=== PATIENT | female | born 1990 | race African-American/Black ===

== ENCOUNTER 2025-05-14 16:11 | Emergency (ER) | payer OTHER, SELFPAY ==
[2025-05-14 16:20] VITALS: BP 122/81; PULSE 81; RESP 18; TEMP 36.4; O2SAT 100
--- OUTSIDE RECORDS SUMMARY | 2025-05-14 16:23 | XMS_ITS | Clinical Summary ---
Author Organization [facility] Address [address] [place] [address] Phone Care Team Providers Care Materials Coordinator Name Role Phone Sheree Yadav APRN, ELECTRICAL ELECTRONICS ENGINEERS Primary Care P rovider Jonny De Guzman MD Unavailable Sydnee Gamble APRN, ELECTRICAL ELECTRONICS ENGINEERS Unavailable Allergies No known active allergies Medications spironolactone (ALDACTONE) 25 MG TabletIndicatio ns:Acne vulgaris Take 1 Tablet by mouth daily. 90 Tablet 3 4 Active Clindamycin Phos-Benzoyl Perox 1-5 % GelIndications: Acne vulgaris Use BID to areas of acne on face 50 g 3 4 Active tirzepatide-samm ght management (Zepbound) 2.5 MG/0.5ML Solution Auto-injectorIn dications:TERRENCE (obstructive sleep apnea),Class 3 severe obesity due to excess calories without serious comorbidity with body mass index (BMI) of 40.0 to 44.9 in adult 2.5 mg by Subcutaneous route once a week. 0.5 mL 5 5 Active Additional Information Patient not taking.Reported on 03/06/2025 Phentermine HCl 37.5 MG TabletIndicatio ns:Class 3 severe obesity due to excess calories without serious comorbidity with body mass index (BMI) of 40.0 to 44.9 in adult Take 1 Tablet by mouth every morning (before breakfast). 30 Tablet 5 Active Additional Information Patient not taking.Reported on 03/06/2025 triamcinolone (KENALOG) 0.1 % Cream Apply a pea size amount to affected area 2 times per day for 14 days. 15 g Active hydrocortisone 2.5 % Cream Apply pea size amount to affected area 2 times per day for 14 days. 30 g Active Active Problems Problem Noted Date Diagnosed Date Eczema 01/31/2025 Snoring 01/27/2025 TERRENCE (obstructive sleep apnea) 01/02/2024 Class 3 severe obesity due t o excess calories without serious comorbidity with body mass index (BMI) of 40.0 to 44.9 in adult 01/02/2024 Encounters Date Type Department Care Team Description 04/22/2025 Telephone [facility] [address] [place] [address] Sophie Nava APRN, CNP provider out of office (Need to reschedule 06/06/2025 appointment ) 03/06/2025 8:00 AM CDT Office Visit [facility] [address] [place] [address] Sophie Nava APRN, CNP Class 3 severe obesity due to excess calories without serious comorbidity with body mass index (BMI) of 40.0 to 44.9 in adult (Primary Dx); Encounter for weight management Discharge Disposition: Discharged to home or Selfcare 03/06/2025 Travel from Last 3 Months Immunizations Immunization Administration Dates Next Due TDAP Vaccine 06/02/2014 Family History Medical History Relation Name Comments Cancer Maternal Grandmother Bipolar Disorder Mother Schizophrenia Mother Relation Name Status Comments Maternal Grandmother Alive Mother Alive Social History Tobacco Use Types Packs/Day Years Used Date Smoking Tobacco: Never Smokeless Tobacco: Never Tobacco Cessation:Counseling Given: Not Answered Alcohol Use Standard Drinks/Week Comments Yes 0 (1 standard drink = 0.6 oz pur e alcohol) [facility] Utilities Answer Date Recorded In the past 12 months has [employer], [employer], oil, or water [employer] threatened to shut off services in your home? Patient declined 01/31/2025 Social Connection and Isolation Panel Answer Date Recorded In a typical week, how many times do you talk on the phone with family, friends, or neighbors? Patient declined 01/31/2025 How often do you get togethe r with friends or relatives? Patient declined 01/31/2025 How often do you attend cheondoism or mormon serv ices? Patient declined 01/31/2025 Do you belong to any clubs o r organizations such as cheondoism groups, unions, fraternal or athletic groups, or school groups? Patient declined 01/31/2025 How often do you attend meet ings of the clubs or organizations you belong to? Patient declined 01/31/2025 Are you , , di vorced, , never , or living with a partner? Patient declined 01/31/2025 AUDIT-C Answer Date Recorded Q1: How often do you have a drink containing alc ohol? Patient declined 01/31/2025 Q2: How many drinks containi ng alcohol do you have on a typical day when you are drinking? Patient declined 01/31/2025 Q3: How often do you have si x or more drinks on one occasion? Patient declined 01/31/2025 Overall Financial Resource Strain (CARDIA) Answe r Date Recorded How hard is it for you to pa y for the very basics like food, housing, medical care, and heating? Patient declined 01/31/2025 PHQ-2 Answer Date Recorded Total Score - Questions 1-9 0 01/08 [facility] - Occupational Stress Questionnaire Answer Date Recorded Do you feel stress - tense, restless, nervous, or anxious, or unable to sleep at night because your mind is troubled all the time - these days? Patient declined 01/31/2025 Exercise Vital Sign Answer Date Recorde d On average, how many days pe r week do you engage in moderate to strenuous exercise (like a brisk walk)? Patient declined On average, how many minutes do you engage in exercise at this level? Patient declined 01/31/2025 Hunger Vital Sign Answer Date Recorded Within the past 12 months, y ou worried that your food would run out before you got the money to buy more. Patient declined Within the past 12 months, t he food you bought just didn't last and you didn't have money to get more. Patient declined PRAPARE - Transportation Answer Date Re corded In the past 12 months, has l ack of transportation kept you from medical appointments or from getting medications? Patient declined 01/31/2025 In the past 12 months, has l ack of transportation kept you from meetings, work, or from getting things needed for daily living? Patient declined 01/31/2025 Housing Stability Vital Sign Answer Ger e Recorded In the last 12 months, was t here a time when you were not able to pay the mortgage or rent on time? Patient declined 02/01/20 Number of Times Moved in the Last Year Not on fi le 01/31/2025 At any time in the past [address] [facility], were you homeless or living in a detention (including now)? 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 Gender Identity Not on file Sexual Orientation Not on file Last Filed Vital Signs Vital Sign Reading Time Taken Comments Blood Pressure 118/80 03/06/2025 8:10 AM CDT Pulse 70 03/06/2025 8:10 AM CDT Temperature 36.5 C (97.7 F) 03/06/2025 8:10 AM CDT Respiratory Rate 20 03/06/2025 8:10 AM CDT Oxygen Saturation 98% 03/06/2025 8:10 AM CDT Inhaled Oxygen Concentration - - Weight 96.8 kg (213 lb 8 oz) 03/06/2025 8:10 AM CDT Height 154.9 cm (5' 1) 03/06/2025 8:10 AM CDT Body Mass Index 40.34 03/06/2025 8:10 AM CDT Plan of Treatment Health Maintenance Due Date Last Done Comments Pap Smear 2010 Human Papillomavirus (HPV) Immunization (1 - 3-dose SCDM series) 2016 Td Immunization Every 10 Yea rs (Adults With 1 Tdap) 06/02/2024 06/02/2014 SARS-COV-2 Immunization ( season) 2024 Influenza Immunization (#1) 2025 Cervical Cancer Screening (CCS) 12/13/2026 HPV/Cotest 12/13/2026 12/13/2021 Respiratory Syncytial Virus (RSV) Immunization (Adult) (1 - 1-dose 75+ series) 2064 DTaP/Tdap/Td Immunization Discontinued 06/02/2014 Hepatitis C Virus (HCV) Screening Completed 024 Hepatitis B Immunization Discontinued Meningococcal Immunization (ACWY) Aged Out No longer eligible based on patient's age to complete this topic Pneumococcal Immunization Combined Aged Out No longer eligible based on patient's age to complete this topic Rotavirus Immunization Aged Out No lo nger eligible based on patient's age to complete this topic Procedures Procedure Name Priority Date/Time Associated Diagnosis Comments HEPATITIS C ANTIBODY Routine 12/27/2023 8:36 AM CDT Preventative health care (Adult) from Last 3 Months or Most Recently Relevant to Health Maintenance Results * HEPATITIS C ANTIBODY (12/27/2023 8:36 AM CDT) hepatitis C antibody 0.14 <1 S/CO 12/27/2023 6:32 PM CDT [facility] Comment: Signal/Cutoff ratio < 0.79 is Nondetected Signal/Cutoff ratio 0.80-0.99 is Grayzone Signal/Cutoff ratio > 0.99 is Detected Supplemental assays are recommended if signal/cutoff ratio is >/=1.00. Signal/cutoff ratio result >/= 5.00 is 97% predictive of positivity for recombinant immunoblot assay (RIBA) and will be reported to the [place] Department of Public Health as required. Blood Venipuncture / Unknown 12/27/2023 8:36 AM CDT 12/27/2023 10:00 AM CDT us Sheree Yadav APRN, CNP CHEMISTRY ORDER SUELLEN Final Result [facility] [address] [place] [address], [place] from Last 3 Months or Most Recently Relevant to Health Maintenance Insurance [employer] Care Teams Materials Coordinator Relationship Specialty Start Date End Date Sheree Yadav APRN, ELECTRICAL ELECTRONICS ENGINEERS [address] [place] [address] PCP - General Advanced Practice Nurse 12/18/23 Jonny De Guzman MD [address] [place] [address] Consulting Physician Pulmonary Disease 01/03/24 Sydnee Gamble APRN, ELECTRICAL ELECTRONICS ENGINEERS [address] [address] Nurse Practitioner Advanced Practice Nurse 01/27/25
--- OUTSIDE RECORDS SUMMARY | 2025-05-14 16:23 | XMS_ITS | Clinical Summary ---
Author Organization [facility] Address [address] [place] [address] Care Team Providers Care Commercial Driver'S License Driver Name Role Phone ElodiaSkyegy Chavez Primary Care Provider Jelani Garcia MD Unavailable [phone] Tyler Rossi MD Unavailable [phone] Lucero Baptiste MD Unavailable [phone] Tenisha Miller MD Unavailable [phone] Source Comments [facility],non-owned Affiliates and Associated Physician Practices is amultiple site organization consisting of ambulatory clinics and hospital sitesin [place], [place], [place] and [place]. This disclosure is being madepursuant to the Care Everywhere program and may not contain all information available regarding this patient. Last updated 18.[facility] Allergies No known active allergies Medications * Be aware that medications may not be up to date on this document. Alwaysverify current medications with the patient. Probiotic Product (PROBIOTIC ADVANCED PO) Take 1 tablet by mouth once daily Active LORazepam (ATIVAN) 0.5 MG tablet Take 0.5 mg by mouth every 8 hours as needed for Anxiety Active naproxen (NAPROSYN) 500 MG tablet Take 1 (one) tablet by mouth 2 times daily as needed for Pain 30 tablet 03/13/2022 Active Active Problems Problem Noted Date Diagnosed Date Diastasis recti Migraine Family History Medical History Relation Name Comments Negative Family History Father Negative Family History Mother Relation Name Status Comments Father Alive Mother Alive Social History Tobacco Use Types Packs/Day Years Used Date Smoking Tobacco: Never Smokeless Tobacco: Never Alcohol Use Standard Drinks/Week Comments Yes 0 (1 standard drink = 0.6 oz pur e alcohol) 1 per week Comments No Sex and Gender Information Value Date Recorded Sex Assigned at Not on file Legal Sex Female 5:13 AM ORCHESTRA MUSICIAN Gender Identity Not on file Sexual Orientation Not on file 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 Not on file Not on file Last Filed Vital Signs Vital Sign Reading Time Taken Comments Blood Pressure 125/76 03/13/2022 11:18 AM CDT Pulse 60 03/13/2022 11:18 AM CDT Temperature 36.9 C (98.5 F) 03/13/2022 11:18 AM CDT Respiratory Rate 18 03/13/2022 11:18 AM CDT Oxygen Saturation 98% 03/13/2022 11:18 AM CDT Inhaled Oxygen Concentration - - Weight 88 kg (194 lb) 03/13/2022 11:18 AM CDT Height 152.4 cm (5') 03/13/2022 11:18 AM CDT Body Mass Index 37.89 03/13/2022 11:18 AM CDT Plan of Treatment Health Maintenance Due Date Last Done Comments HIV SCREENING 2004 HEPATITIS C SCREENING 07/15/2007 DTAP/TDAP/TD VACCINES (1 - Tdap) 2008 HEPATITIS B VACCINE (1 of 3 - 19+ 3-dose series) 2008 HPV VACCINE (1 - 3-dose SCDM series) 2016 COVID-19 VACCINE (3 - season) 2024 06/12/2021, 05/15/2021 DEPRESSION SCREENING 10/09/2024 PAP SMEAR 12/13/2024 12/13/2021, 1211/2015, 09/09/2016, Additional history exists INFLUENZA VACCINE (#1) 2025 ZOSTER VACCINE (1 of 2) 2039 HIB VACCINE Aged Out No longer eligi ble based on patient's age to complete this topic MENINGOCOCCAL (Group B) VACCINE SHARED DECISION-MAKING Aged Out No longer eligible based on patient's age to complete this topic MENINGOCOCCAL GROUPS A/C/Y/W VACCINE Aged Out No longer eligible based on patient's age to complete this topic PNEUMOCOCCAL VACCINE Aged Out No long er eligible based on patient's age to complete this topic Procedures Procedure Name Priority Date/Time Associated Diagnosis Comments PAP IG LB CT+NG+TV RFLX HPV ASCU Routine 12/13/2021 11:13 AM ORCHESTRA MUSICIAN Well woman exam with routine gynecological exam from Last 3 Months or Most Recently Relevant to Health Maintenance Results * PAP IG LB CT+NG+TV RFLX HPV ASCU (12/13/2021 11:13 AM ORCHESTRA MUSICIAN) Diagnosis [facility] ACCOUNT BILL Comment: NEGATIVE FOR INTRAEPITHELIAL LESION OR MALIGNANCY. PREDOMINANCE OF COCCOBACILLI CONSISTENT WITH SHIFT IN VAGINAL EARL IS PRESENT. Specimen Adequacy [facility] ACCOUNT BILL Comment:Satisfactory for abena luation. No endocervical component is identified. Clinician Provided ICD10 [facility] ACCOUNT BILL Comment: Z01.419 N76.0 B96.89 Performed by [facility] ACCOUNT BILL Comment:Shantal taylor, Lead Cargo Mover (ASCP) Comment . [facility] ACCOUNT BILL Note [facility] ACCOUNT BILL Comment: The Pap smear is a screening test designed to aid in the detection of premalignant and malignant conditions of the uterine cervix. It is not a diagnostic procedure and should not be used as the sole means of detecting cervical cancer. Both false-positive and false-negative reports do occur. . IGLBP CPT Code Automation [facility] ACCOUNT BILL Comment: This liquid based ThinPrep(R) pap test was screened with the use of an image guided system. Note [facility] ACCOUNT BILL Comment: The HPV DNA reflex criteria were not met with this specimen result therefore, no HPV testing was performed. . Chlamydia trachomatis JINA Negative Negative [facility] ACCOUNT BILL GC JINA Negative Negative [facility] ACCOUNT BILL Trichomonas vaginalis by JINA Negative Negative [facility] ACCOUNT BILL PART OF UTERINE CERVIX / Unknown 12/13/2021 11:13 AM ORCHESTRA MUSICIAN 12/14/2021 Narrative [facility] ACCOUNT BILL - 12/17/2021 11:10 AM ORCHESTRA MUSICIAN No. of containers..01 ThinPrep Vial Resulting Agency Comment Lab Testing performed at: [facility] [address] [id number] Jelani Garcia MD LAB - PATHOLOGY/CYTOLOGY ORDERA BLES Final Result [facility] [place] [place] [address] from Last 3 Months or Most Recently Relevant to Health Maintenance Care Teams Commercial Driver'S License Driver Relationship Specialty Start Date End Date Jessica Clifton DO [address] [place] [id number] PCP - General Family Medicine 04/26/16 Jelani Garcia MD [address] [facility] [address] [place] [phone] Counseling Case Manager Obstetrics and Gynecology 08/20/16 Tyler Rossi MD [address] [facility] [facility] [address] [place] [address] General Surgery 02/14/17 [place] [address] [facility] [address] [place] [phone] Rheumatology 03/14/18 Tenisha Miller MD [address] [place] [address] [address] [place], [place] [id number] Internal Medicine 03/14/18
--- OUTSIDE RECORDS SUMMARY | 2025-05-14 16:23 | XMS_ITS | Encounter Summary ---
Author Organization [facility] Address [address] [place] [address] Phone Care Team Providers Care Sizer Machine Name Role Phone Sheree Yadav APRN, CNP Primary Care P rovider Jonny De Guzman MD Unavailable Sydnee Gamble APRN, CNP Unavailable Encounter Details Date Type Department Care Team (Late st Contact Info) Description 06/28/2024 Telephone [facility] [address] [place] [address] Sheree Yadav APRN, CNP [address] [place] [address] Social History Tobacco Use Types Packs/Day Years Used Date Smoking Tobacco: Never Smokeless Tobacco: Never Alcohol Use Standard Drinks/Week Comments Yes 0 (1 standard drink = 0.6 oz pur e alcohol) occ Comments No Sex and Gender Information Value Date Recorded Sex Assigned at Not on file 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 Gender Identity Not on file Sexual Orientation Not on file documented as of this encounter Plan of Treatment Not on file documented as of this encounter Visit Diagnoses Not on filedocumented in this encounter Care Teams Sizer Machine Relationship Specialty Start Date End Date Sheree Yadav APRN, CNP [address] [place] [address] PCP - General Advanced Practice Nurse 12/18/23 Jonny De Guzman MD [address] [place] [address] Consulting Physician Pulmonary Disease 01/03/24 Sydnee Gamble APRN, BLACK TOPPER [address] [address] Nurse Practitioner Advanced Practice Nurse 01/27/25 documented as of this encounter
--- OUTSIDE RECORDS SUMMARY | 2025-05-14 16:23 | XMS_ITS | Clinical Summary ---
Author Organization [facility] Address [address] [place] [address] Care Team Providers Care Concert Promoter Name Role Phone Tenisha Miller MD Primary Care Provider Allergies No known active allergies Medications buPROPion (WELLBUTRIN) 100 mg tablet take 1 tablet by oral route 2 times every day 0 0 6 Active cyclobenzaprine (FLEXERIL) 10 mg tabletIndicatio ns:Muscle Spasm Take 1 tablet (10 mg total) by mouth 3 (three) times a day as needed for muscle spasms 12 tablet 1 Active metoclopramide (REGLAN) 10 mg tablet Take 1 tablet (10 mg total) by mouth every 6 (six) hours 30 tablet 5 Active ondansetron (ZOFRAN) 4 mg tablet Take 1 tablet (4 mg total) by mouth every 6 (six) hours 12 tablet 5 Active acetaminophen (TYLENOL) 500 mg tablet Take 1 tablet (500 mg total) by mouth every 6 (six) hours as needed for pain, headaches or fever 30 tablet 5 Active ibuprofen (ADVIL,MOTRIN) 600 mg tabletIndicatio ns:Pain Take 1 tablet (600 mg total) by mouth every 6 (six) hours as needed for pain 30 tablet 5 Active Immunizations Immunization Administration Dates Next Due Tdap 06/02/2014 Surgical History Surgery Date Site/Laterality Comments OTHER SURGICAL HISTORY : Induced OTHER SURGICAL HISTORY : Medical History Medical History Date Comments Hx Other Medical ; Outc ome: Unknown Hx Other Medical ; Outc ome: [id number] week 7lb(s) 7 oz Male Family History Medical History Relation Name Comments Hypertension Brother Diabetes Maternal Grandmother Diabetes Mother Cancer Other 1 Family history of Cancer; Diabetes Other 2 Family history of Diabetes mellitus; Relation Name Status Comments Brother Maternal Grandmother Mother Other 1 Other 2 Social History Tobacco Use Types Packs/Day Years Used Date Smoking Tobacco: Never Alcohol Use Standard Drinks/Week Comments Yes 0 (1 standard drink = 0.6 oz pur e alcohol) Personal Safety Answer Date Recorded Have you ever been in or are you currently in a harmful physical or emotional relationship or is someone making you feel afraid or unsafe? Denies 11/19/2024 Comments No Sex and Gender Information Value Date Recorded Sex Assigned at Not on file Legal Sex Female 6:38 PM REGISTERED NURSE STEP DOWN Gender Identity Not on file Sexual Orientation Not on file Obstetrics History Last Filed Vital Signs Vital Sign Reading Time Taken Comments Blood Pressure 111/75 11/19/2024 11:19 PM REGISTERED NURSE STEP DOWN Pulse 101 11/19/2024 11:19 PM REGISTERED NURSE STEP DOWN Temperature 36.6 C (97.8 F) 11/19/2024 11:19 PM REGISTERED NURSE STEP DOWN Respiratory Rate 18 11/19/2024 11:19 PM REGISTERED NURSE STEP DOWN Oxygen Saturation 99% 11/19/2024 11:19 PM REGISTERED NURSE STEP DOWN Inhaled Oxygen Concentration - - Weight 96.6 kg (213 lb) 11/19/2024 5:57 PM REGISTERED NURSE STEP DOWN Height 154.9 cm (5' 1) 11/19/2024 5:57 PM REGISTERED NURSE STEP DOWN Body Mass Index 40.25 11/19/2024 5:57 PM REGISTERED NURSE STEP DOWN Plan of Treatment Health Maintenance Due Date Last Done Comments Cervical Cancer Screening 1989 Depression Screening 1989 Hepatitis C Screening 1989 Varicella Vaccines (1 of 2 - 13+ 2-dose series) 2002 Hepatitis B Screening 2007 Regular Well Visit/Exam 18-64 2007 HPV Vaccines (1 - 3-dose SCD M series) 2016 DTaP/Tdap/Td Vaccine (2 - Td or Tdap) 06/02/2024 06/02/2014 Covid-19 Vaccine (3 - 2023-2 5 season) 2024 06/12/2021, 05/15/2021 Influenza Vaccine (#1) 2025 Pneumococcal vaccine <65 Aged Out 09/17/2004 No longer eligible based on patient's age to complete this topic Insurance [facility] CHOICE PLUS [facility] HMO [facility] HMO/PPO Address: [address] [place] [address] [employer] [facility] PPO Care Teams Concert Promoter Relationship Specialty Start Date End Date Tenisha Miller MD [address] [address] PCP - General 10/17/18
--- NOTE | 2025-05-14 16:44 | ED_ITS ---
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 Believe she has a vaginal yeast i nfection as she has had them frequently in the past. She has been sweaty recently in the gym. Related Data Home Medications ?Medication ?Instructions ?Recorded ?Confirmed ?Last Taken ?Type Probiotic PO DAILY 05/14/25 Unknown History Allergies Allergy/AdvReac Type Severity Reaction Status Date / Time Penicillins Allergy Intermediate Hives Verified 05/14/25 16:29 PMFSH Comments At time of signature, I have reviewed and agree with nursing past medical, surgical, social and family history unless otherwise noted. Please see nursing chart for further information. There is no relevant family history pertinent to the presenting complaint Exam Narrative: GENERAL: Well-appearing, well-nourished, and in no acute distress. HEAD: Normocephalic, atraumatic. EYES: EOMI. No redness or drainage. Conjunctivae normal. ENT: Mucous membranes pink and moist. NECK: Normal AROM. CHEST: No respiratory distress. : deferred exam EXTREMITIES: Normal range of motion. No edema. SKIN: Warm, dry, no rash. Capillary refill normal. Normal skin turgor. NEURO: No focal deficits. Alert and oriented x3. Gait steady. PSYCH: Normal affect. No signs of depression or anxiety. Course Course Level of Care: Express Care Visit Vital Signs Vital signs: Vital Signs Temperature 97.6 F 05/14/25 16:20 Pulse Rate 81 05/14/25 16:20 Respiratory Rate 18 05/14/25 16:20 Blood Pressure 122/81 05/14/25 16:20 Pulse Oximetry 100 05/14/25 16:20 Oxygen Delivery Room Air 05/14/25 16:20 Temperature 97.6 F 05/14/25 16:20 Pulse Rate 81 05/14/25 16:20 Respiratory Rate 18 05/14/25 16:20 Blood Pressure 122/81 05/14/25 16:20 Pulse Oximetry 100 05/14/25 16:20 Oxygen Delivery Room Air 05/14/25 16:20 Reviewed MDM - Female Genitourinary MDM Narrative Medical decision making narrative: 34-year-old female patient presents today with vulvar itching, irritation, and thick white vaginal discharge since yesterday. Believe she has a vaginal yeast infection as she has had them frequently in the past. Defers exam today. States she has had of fluconazole in the past and her OBGYN has given her higher dose due to her history. Will prescribe fluconazole 200 mg and recommend following up with OBGYN if symptoms persist. Patient agrees with plan. Differential Diagnosis Differential diagnosis: Likely bacterial vaginosis and vaginitis Critical Care Time Critical Care Time Critical Care Time: No Discharge Plan Discharge Clinical Impression: Vaginal yeast infection Patient Disposition: Home Condition: Stable Instructions: Yeast Infection (ED) Additional Instructions: Please take the fluconazole as prescribed. Change damp clothes frequently. Do not sit in wet bathing suits. Wear cotton underwear. Follow-up with your OBGYN in 1 week if symptoms persist. Your blood pressure was elevated above 120/80 today at Urgent Care. This puts you above the threshold for follow up. Please schedule a followup visit with your personal physician as soon as possible, for further evaluation and treatment. Even blood pressure exceeding 120/80 may indicate pre-hypertension. Patient Language: Luxembourgish Prescriptions: New fluconazole 200 mg tablet 200 mg PO .every 3 days Qty: 2 0RF No Action Probiotic PO DAILY Follow-up/Referrals: PHYSICIAN NOT ON STAFF,NONSTAFF [Primary Care Provider] - Time of Disposition: 16:50
== END 2025-05-14 16:50 | disposition home or self-care (01) ==
PROVIDERS: Emergency Provider Nurse Practitioner
DX: B37.31 Acute candidiasis of vulva and vagina (principal)
CPT/HCPCS: 99203; G0463

== ENCOUNTER 2025-08-15 10:19 | Emergency (ER) | payer OTHER, SELFPAY ==
[2025-08-15 10:23] VITALS: BP 126/76; PULSE 80; RESP 22; TEMP 36.4; O2SAT 98
--- OUTSIDE RECORDS SUMMARY | 2025-08-15 11:00 | XMS_ITS | Encounter Summary ---
Author Organization [facility] Address [address] [place] [address] Phone Care Team Providers Care Sustain Engineer Name Role Phone Sheree Yadav APRN, ADOBE BALL MIXER Primary Care P meseretder Jonny De Guzman MD Unavailable Sydnee Gamble APRN, ADOBE BALL MIXER Unavailable Encounter Details Date Type Department Care Team (Late Contact Info) Description 06/28/2024 [facility] [address] [place] [phone] Sheree Yadav APRN, ADOBE BALL MIXER [address] [place] [address] Social History Tobacco Use Types Packs/Day Years Used Date Smoking Tobacco: Never Smokeless Tobacco: Never Alcohol Use Standard Drinks/Week Comments Yes 0 (1 standard drink = 0.6 oz pur e alcohol) occ Comments No Sex and Gender Information Value Date Recorded Sex Assigned at Not on file Legal Sex Female 3:25 PM OILING MACHINE OPERATOR Gender Identity Not on file Sexual Orientation Not on file documented as of this encounter Plan of Treatment Upcoming Encounters Date Type Department Care Team (Late Contact Info) Description 10/16/2025 3:30 PM OILING MACHINE OPERATOR [facility] [place] [phone] Sheree Yadav APRN, JULIO [address] [place] [address] documented as of this encounter Visit Diagnoses Not on filedocumented in this encounter Care Teams Sustain Engineer Relationship Specialty Start Date End Date Sheree Yadav APRN, ADOBE BALL MIXER [address] [place] [address] PCP - General Advanced Practice Nurse 12/18/23 Jonny De Guzman MD [address] [place] [address] Consulting Physician Pulmonary Disease 01/03/24 Sydnee Gamble APRN, ADOBE BALL MIXER [address] [address] Nurse Practitioner Advanced Practice Nurse 01/27/25 documented as of this encounter
--- OUTSIDE RECORDS SUMMARY | 2025-08-15 11:00 | XMS_ITS | Clinical Summary ---
Author Organization [facility] Address [address] [place] [address] Care Team Providers Care Automobile Mechanic Helper Name Role Phone Tenisha Miller MD Primary [...] on file Legal Sex Female 6:38 PM STUDENT SERVICES VICE PRESIDENT Gender Identity Not on file Sexual Orientation Not on file Last Filed Vital Signs Vital Sign Reading Time Taken Comments Blood Pressure 111/75 11/19/2024 11:19 PM STUDENT SERVICES VICE PRESIDENT Pulse 101 11/19/2024 11:19 PM STUDENT SERVICES VICE PRESIDENT Temperature 36.6 C (97.8 F) 11/19/2024 11:19 PM STUDENT SERVICES VICE PRESIDENT Respiratory Rate 18 11/19/2024 11:19 PM STUDENT SERVICES VICE PRESIDENT Oxygen Saturation 99% 11/19/2024 11:19 PM STUDENT SERVICES VICE PRESIDENT Inhaled Oxygen Concentration - - Weight 96.6 kg (213 lb) 11/19/2024 5:57 PM STUDENT SERVICES VICE PRESIDENT Height 154.9 cm (5' 1) 11/19/2024 5:57 PM STUDENT SERVICES VICE PRESIDENT Body Mass Index 40.25 11/19/2024 5:57 PM STUDENT SERVICES VICE PRESIDENT Plan of Treatment Health Maintenance Due Date Last Done Comments Cervical Cancer Screening 1989 Depression Screening 1989 Hepatitis C Screening 1989 Varicella Vaccines (1 of 2 - 13+ 2-dose series) 2002 Hepatitis B Screening 2007 Regular Well Visit/Exam 18-64 2007 HPV Vaccines (1 - 3-dose SCD M series) 2016 DTaP/Tdap/Td Vaccine (2 - Td or Tdap) 06/02/2024 06/02/2014 Covid-19 Vaccine (3 - 2024-2 6 season) 2025 06/12/2021, 05/15/2021 Influenza Vaccine (#1) 2025 Pneumococcal vaccine <65 Aged Out 09/17/2004 No longer eligible based on patient's age to complete this topic Insurance [facility] HMO [employer] [facility] PPO Care Teams Automobile Mechanic Helper Relationship Specialty Start Date End Date Tenisha Miller MD [address] [address] PCP - General 10/17/18
--- OUTSIDE RECORDS SUMMARY | 2025-08-15 11:00 | XMS_ITS | Clinical Summary ---
Author Organization [facility] Address [address] [place] [address] Phone Care Team Providers Care Mechanical Engineering Draftsperson Name Role Phone Sheree Yadav APRN, JULIO Primary Care P rovider Jonny De Guzman MD Unavailable Sydnee Gamble APRN, JULIO Unavailable Allergies No known active allergies Medications spironolactone (ALDACTONE) 25 MG TabletIndications :Acne vulgaris Take 1 Tablet by mouth daily. 90 Tablet 3 4 Active Clindamycin Phos-Benzoyl Perox 1-5 % GelIndications:Ac ne vulgaris Use BID to areas of acne on face 50 g 3 4 Active triamcinolone (KENALOG) 0.1 % Cream Apply a pea size amount to affected area 2 times per day for 14 days. 15 g 5 Active Contrave 8-90 MG TABLET SR 12 HR Take two tablets by mouth twice daily 120 Tablet 1 5 Active hydrocortisone 2.5 % Cream Apply pea size amount to affected area 2 times per day for 14 days. 30 g 5 Active valACYclovir (VALTREX) 500 MG TabletIndications :HSV-2 seropositive Take 1 Tablet by mouth daily. 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 Eczema 01/31/2025 Snoring 01/27/2025 TERRENCE (obstructive sleep apnea) 01/02/2024 Class 3 severe obesity due t o excess calories without serious comorbidity with body mass index (BMI) of 40.0 to 44.9 in adult 01/02/2024 Encounters Date Type Department Care Team Description 08/15/2025 Nurse Triage [facility] [address] [place] [phone] Sheree Yadav APRN, FORKLIFT TRUCK OPERATOR Vaginal Discharge 06/10/2025 Results Follow-Up [facility] [place] [address] [place] [phone] Holden Beyer MD SYPHILIS IGG/IGM W/REFLEX, HEPATITIS PANEL ACUTE (AHP), HIV 1 & 2 ANTIBODY & ANTIGEN SCREEN, Additional followed-up results: 3 06/05/2025 4:30 PM CDT Lab [facility] [place] [address] [place] [address] Possible exposure to STD Discharge Disposition: Discharged to home or Selfcare 06/05/2025 3:30 PM CDT Office Visit [facility] [place] [address] [place] [address] Holden Beyer MD Possible exposure to STD (Primary Dx); Class 3 severe obesity due to excess calories without serious comorbidity with body mass index (BMI) of 40.0 to 44.9 in adult; Irritable bowel syndrome with constipation Discharge Disposition: Discharged to home or Selfcare 06/05/2025 Travel 06/04/2025 Telephone [facility] [address] [place] [phone] Sheree Yadav APRN, FORKLIFT TRUCK OPERATOR Appointment 05/27/2025 Refill [facility] [place] [address] Sophie Nava, DIABETES SPECIALIST, FORKLIFT TRUCK OPERATOR Medication Refill from Last 3 Months Immunizations Immunization Administration [...] drink = 0.6 oz pur e alcohol) [facility] [employer] Answer Date Recorded In the past 12 months has e electric, gas, oil, or water company threatened to shut off services in your home? Patient declined 01/31/2025 Social Connection and Isolation Panel Answer Date Recorded In a typical week, how many times do you talk on the phone with family, friends, or neighbors? Patient declined 01/31/2025 How often do you get togethe r with friends or relatives? Patient declined 01/31/2025 How often do you attend buddhism or rastafarian serv ices? Patient declined 01/31/2025 Do you belong to any clubs o r organizations such as buddhism groups, unions, fraternal or athletic groups, or [...] Total Score - Questions 1-9 0 01/08 [facility] of Occupat ional Health - Occupational Stress Questionnaire Answer Date Recorded [...] any time in the past 12 m [facility], were you homeless or living in a custodial (including now)? Patient declined 01/31/2025 Comments No Sex and Gender Information Value Date Recorded Sex Assigned at Not on file Legal Sex Female 3:25 PM PRINTED PRODUCTS ASSEMBLER Gender Identity Not on file Sexual Orientation Not on file Last Filed Vital Signs Vital Sign Reading Time Taken Comments Blood Pressure 120/74 06/05/2025 3:48 PM CDT Pulse 82 06/05/2025 3:48 PM CDT Temperature 36.3 C (97.4 F) 06/05/2025 3:48 PM CDT Respiratory Rate 18 06/05/2025 3:48 PM CDT Oxygen Saturation 97% 06/05/2025 3:48 PM CDT Inhaled Oxygen Concentration - - Weight 92.6 kg (204 lb 1 oz) 06/05/2025 3:48 PM CDT Height 154.9 cm (5' 1) 06/05/2025 3:48 PM CDT Body Mass Index 38.56 06/05/2025 3:48 PM CDT Plan of Treatment Upcoming Encounters Date Type Department Care Team (Late st Contact Info) Description 10/16/2025 3:30 PM PRINTED PRODUCTS ASSEMBLER Office Visit [facility] [place] [address] [place] [address] Sheree Yadav DIABETES SPECIALIST, FORKLIFT TRUCK OPERATOR [address] [place] [address] Health Maintenance Due Date Last Done Comments Pap Smear 2010 Human Papillomavirus (HPV) Immunization (1 - 3-dose SCDM series) 2016 Td Immunization Every 10 Yea rs (Adults With 1 Tdap) 06/02/2024 06/02/2014 Influenza Immunization (#1) 2025 SARS-COV-2 Immunization ( season) 2025 Cervical Cancer Screening (CCS) 12/13/2026 HPV/Cotest 12/13/2026 12/13/2021 Respiratory Syncytial Virus (RSV) Immunization (Adult) (1 - 1-dose 75+ series) 2064 DTaP/Tdap/Td Immunization Discontinued 06/02/2014 Hepatitis C Virus (HCV) Screening Completed 06/05/2025, 12/27/2023 Hepatitis B Immunization Discontinued Meningococcal Immunization (ACWY) Aged Out No longer eligible based on patient's age to complete this topic Pneumococcal Immunization Combined Aged Out No longer eligible based on patient's age to complete this topic Rotavirus Immunization Aged Out No lo nger eligible based on patient's age to complete this topic Procedures Procedure Name Priority Date/Time Associated Diagnosis Comments CHLAMYDIA & GC DNA PROBE Today 06/05/2025 4:45 PM CDT Possible exposure to STD CHLAMYDIA & GC DNA PROBE ADULT Today 06/05/2025 4:45 PM CDT Possible exposure to STD HSV TYPE II IGG ANTIBODY Today 06/05/2025 4:24 PM CDT Possible exposure to STD HSV TYPE I IGG ANTIBODY Today 06/05/2025 4:24 PM CDT Possible exposure to STD HIV 1 & 2 ANTIBODY & ANTIGEN SCREEN Today 06/05/2025 4:24 PM CDT Possible exposure to STD HEPATITIS PANEL ACUTE (AHP) Today 06/05/2025 4:24 PM CDT Possible exposure to STD HERPES SIMPLEX 1 & 2 ANTIBODIES IGG Today 06/05/2025 4:24 PM CDT Possible exposure to STD HIV 1 & 2 ANTIBODY & ANTIGEN SCREEN PANEL Today 06/05/2025 4:24 PM CDT Possible exposure to STD SYPHILIS IGG/IGM W/REFLEX Today 06/05/2025 4:24 PM CDT Possible exposure to STD from Last 3 Months Results * CHLAMYDIA & GC DNA PROBE ADULT (06/05/2025 4:45 PM CDT) CHLAMYDIA DNA NEGATIVE NEGATIVE 06/07/2025 1:[address] [facility] Comment: Presumed negative for C. trachomatis. A negative result does not preclude C. trachomatis infection because results are dependent on adequate specimen collection, absence of inhibitors, and sufficient DNA to be detected. This test was performed using MEY [id number] Real Time PCR. GC DNA NEGATIVE NEGATIVE 06/07/2025 1:[address] [facility] Comment: Presumed negative for N. gonorrhoeae. A negative result does not preclude N. gonorrhoeae infection because results are dependent on adequate specimen collection, absence of inhibitors, and sufficient DNA to be detected. This test was performed using MEY 5800 Real Time PCR. Other URINE / Unknown Non-Phlebotomy Collection / Unknown 06/05/2025 4:45 PM CDT 06/05/2025 4:45 PM CDT us Holden M Kayleen MD MICROBIOLOGY - GENERAL OR DERABLES Final Result Performing Organization Address [facility] Co de Phone Number [facility] [address] [place] [address], [place] * HIV 1 & 2 ANTIBODY & ANTIGEN SCREEN (06/05/2025 4:24 PM CDT) HIV 1 & 2 ANTIBODY & ANTIGEN SCREEN NON DETECTED NON DETECTED 06/06/2025 4:46 PM CDT [facility] Blood Venipuncture / Unknown 06/05/2025 4:24 PM CDT 06/05/2025 4:24 PM CDT Holden Beyer MD CHEMISTRY ORDERABLES Magi l Result Performing Organization Address [facility] Co de Phone Number [facility] [address] [place] [address], [place] * SYPHILIS IGG/IGM W/REFLEX (06/05/2025 4:24 PM CDT) SYPHILIS IGG/IGM Nonreactive Nonreactive 06/06/2025 4:[address] [facility] Blood Venipuncture / Unknown 06/05/2025 4:24 PM CDT 06/05/2025 4:24 PM CDT Holden Beyer MD IMMUNOLOGY ORDERABLES Fin al Result Performing Organization Address City/[facility] Co de Phone Number [facility] [address] [place] [address], [place] * (ABNORMAL) HSV TYPE II IGG ANTIBODY (06/05/2025 4:24 PM CDT) HSV TYPE 2 IGG AB >8.0(H) <1.1 AI 06/06/2025 4:[address] [facility] Comment: <0.9 Negative. No detectable HSV-2 IgG antibody. 0.9 - 1.0 Equivocal >=1.1 Positive Antibody testing was performed by multiplex flow immunoassay on the [employer] platform. Blood Venipuncture / Unknown 06/05/2025 4:24 PM CDT 06/05/2025 4:24 PM CDT Holden Beyer MD CHEMISTRY ORDERABLES Magi l Result Performing Organization Address [facility] Co de Phone Number [facility] [address] [place] [address], [place] * HSV TYPE I IGG ANTIBODY (06/05/2025 4:24 PM CDT) Pathologist [facility] HSV TYPE 1 IGG AB 0.5 <1.1 AI 06/06/2025 4:[address] [facility] Comment: <0.9 Negative. No detectable HSV-1 IgG antibody. 0.9 - 1.0 Equivocal >=1.1 Positive Antibody testing was performed by multiplex flow immunoassay on the [employer] platform. Blood Venipuncture / Unknown 06/05/2025 4:24 PM CDT 06/05/2025 4:24 PM CDT Holden Beyer MD CHEMISTRY ORDERABLES Magi l Result Performing Organization Address [facility] de Phone Number [facility] [address] [place] [address], [place] * HEPATITIS PANEL ACUTE (AHP) (06/05/2025 4:24 PM CDT) Pathologist [facility] HEPATITIS A IGM ANTIBODY NON DETECTED NON DETECTED 06/06/2025 4:[address] [facility] Comment: IGM Antibodies to HAV not detected. Does not exclude early acute or recovered HAV infection. HEP B CORE AB (IGM) NON DETECTED NON DETECTED 06/06/2025 4:[address] [facility] Comment:IGM anti-HBC not det ected. Does not exclude the possibility of exposure to or infection with HBV. HEPATITIS B SURFACE ANTIGEN NON DETECTED NON DETECTED 06/06/2025 4:[address] [facility] Comment:A nonreactive test r esult does not exclude the possibility of exposure to or infection with Hepatitis B virus. A nonreactive test result in individuals with prior exposure to hepatitis B may be due to antigen levels below the detection limit of this assay or lack of antigen reactivity to the antibodies in this assay. hepatitis C antibody 0.13 <1 S/CO 06/06/2025 4:[address] [facility] Comment: Signal/Cutoff ratio < 0.79 is Nondetected Signal/Cutoff ratio 0.80-0.99 is Grayzone Signal/Cutoff ratio > 0.99 is Detected Supplemental assays are recommended if signal/cutoff ratio is >/=1.00. Signal/cutoff ratio result >/= 5.00 is 97% predictive of positivity for recombinant immunoblot assay (RIBA) and will be reported to the [place] Department of Public [facility] as required. Blood Venipuncture / Unknown 06/05/2025 4:24 PM CDT 06/05/2025 4:24 PM CDT us Holden Beyer MD HEMATOLOGY ORDERABLES Fin al Result Performing Organization Address City/State/[facility] Co de Phone Number [facility] [address] [place] [address], from Last 3 Months Insurance [employer] Care Teams Mechanical Engineering Draftsperson Relationship Specialty Start Date End Date Sheree Yadav APRN, FORKLIFT TRUCK OPERATOR [address] [place] [address] PCP - General Advanced Practice Nurse 12/18/23 Jonny De Guzman MD [address] [place] [address] Consulting Physician Pulmonary Disease 01/03/24 Sydnee Gamble APRN, FORKLIFT TRUCK OPERATOR [address] [address] Nurse Practitioner Advanced Practice Nurse 01/27/25
--- OUTSIDE RECORDS SUMMARY | 2025-08-15 11:01 | XMS_ITS | Clinical Summary ---
Author Organization [facility] Address [address] [place] [address] Care Team Providers Care Clinical Immunologist Name Role Phone Jessica Clifton DO Primary Care Provider [phone] Jelani Garcia MD Unavailable [phone] Tyler Rossi MD Unavailable [phone] Lucero Baptiste MD Unavailable [phone] Tenisha Miller MD Unavailable Source Comments [facility],non-owned Affiliates and Associated Physician Practices is amultiple site organization consisting of ambulatory clinics and hospital sitesin [place], [place], [place] and [place]. This disclosure is being madepursuant to the Care Everywhere program and may not contain all information available regarding this patient. Last updated 18.[facility] Allergies No known active allergies Medications * [...] Noted Date Diagnosed Date Diastasis recti Migraine Encounters Date Type Department Care Team Description 07/26/2025 11:48 AM CDT - 07/26/2025 11:59 PM CDT Hospital Encounter [facility] Care Counts include 234 beds at the [facility] [place] [address] Ajit Springer, CLAIMS TECHNICIAN-MACHINE TACK PULLER Discharge Disposition: Home or Self Care from Last 3 Months Family History Medical History Relation Name Comments Negative Family History Father Negative Family History Mother Relation Name Status Comments Father Alive Mother Alive Social History Tobacco Use Types Packs/Day Years Used Date Smoking Tobacco: Never Smokeless Tobacco: Never Tobacco Cessation:Counseling Given: Not Answered Alcohol Use Standard Drinks/Week Comments Yes 0 (1 standard drink = 0.6 oz pur e alcohol) 1 per week PHQ-2 Answer Date Recorded Patient Health Questionnaire-2 Score 0 07/26/2025 Comments No Sex and Gender Information Value Date Recorded Sex Assigned at Not on file Legal Sex Female 5:13 AM FACILITY WORKER Gender Identity Not on file Sexual Orientation Not on file 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 Not on file Not on file Last Filed Vital Signs Vital Sign Reading Time Taken Comments Blood Pressure 114/73 07/26/2025 11:56 AM CDT Pulse 82 07/26/2025 11:56 AM CDT Temperature 36.9 C (98.5 F) 07/26/2025 11:56 AM CDT Respiratory Rate 21 07/26/2025 11:56 AM CDT Oxygen Saturation 100% 07/26/2025 11:56 AM CDT Inhaled Oxygen Concentration - - Weight 92.1 kg (203 lb) 07/26/2025 11:56 AM CDT Height 154.9 cm (5' 1) 07/26/2025 11:56 AM CDT Body Mass Index 38.36 07/26/2025 11:56 AM CDT Plan of Treatment Health Maintenance Due Date Last Done Comments HEPATITIS C SCREENING 07/15/2007 DTAP/TDAP/TD VACCINES (1 - Tdap) 2008 HEPATITIS B VACCINE (1 of 3 - 19+ 3-dose series) 2008 HPV VACCINE (1 - 3-dose SCDM series) 2016 PAP SMEAR 12/13/2024 12/13/2021, 11/2015, 09/09/2016, Additional history exists COVID-19 VACCINE ( season) 2025 06/12/2021, 05/15/2021 INFLUENZA VACCINE (#1) 2025 ZOSTER VACCINE (1 of 2) 2039 HIV SCREENING Completed 06/05/2025 DEPRESSION SCREENING Completed 07/26/2025 HIB VACCINE Aged Out No longer eligi [...] Procedure Name Priority Date/Time Associated Diagnosis Comments STREP A SCREEN - POCT (IP) URGENT CARE Routine 07/26/2025 12:36 PM CDT Sorethroat PAP IG LB CT+NG+TV RFLX HPV ASCU Routine 12/13/2021 11:13 AM FACILITY WORKER Well woman exam with routine gynecological exam from Last 3 Months or Most Recently Relevant to Health Maintenance Results * STREP A SCREEN - POCT (IP) URGENT CARE (07/26/2025 12:36 PM CDT) Strep A Rapid POCT Negative Negative [facility] QC Verified Yes Yes [facility] Throat ENTIRE ANTERIOR SURFACE OF NECK / Unknown 07/26/2025 12:36 PM CDT us Ajit Springer CLAIMS TECHNICIAN-MACHINE TACK PULLER LAB - POINT OF CARE ORD ERABLES Final Result [facility] [address] [address] [place] [address], [facility] [phone] * PAP IG LB CT+NG+TV RFLX HPV ASCU (12/13/2021 11:13 AM FACILITY WORKER) Diagnosis [facility] ACCOUNT BILL Comment: NEGATIVE FOR INTRAEPITHELIAL LESION OR MALIGNANCY. PREDOMINANCE OF COCCOBACILLI CONSISTENT WITH SHIFT IN VAGINAL EARL IS PRESENT. Specimen Adequacy [facility] ACCOUNT BILL Comment:Satisfactory for abena luation. No endocervical component is identified. Clinician Provided ICD10 [facility] ACCOUNT BILL Comment: Z01.419 N76.0 B96.89 Performed by [facility] ACCOUNT BILL Comment:Shantal taylor, Precision Lens Grinder Apprentice (ASCP) Comment . [facility] ACCOUNT BILL Note [...] UTERINE CERVIX / Unknown 12/13/2021 11:13 AM FACILITY WORKER 12/14/2021 Narrative [facility] ACCOUNT BILL - 12/17/2021 11:10 AM FACILITY WORKER No. of containers..01 ThinPrep Vial Resulting Agency Comment Lab Testing performed at: [address] [id number] Jelani Garcia MD LAB - PATHOLOGY/CYTOLOGY ORDERA BLES Final Result [facility] ACCOUNT BILL [address] [place] [address] from Last 3 Months or Most Recently Relevant to Health Maintenance Insurance [facility] Care Teams Clinical Immunologist Relationship Specialty Start Date End Date Jessica Clifton DO [address] [facility] [place] [phone] PCP - General Family Medicine 04/26/16 Jelani Garcia MD [address] [place] [address] Mechanical Engineering Intern Obstetrics and Gynecology 08/20/16 Tyler Rossi MD [address] [place] [address] General Surgery 02/14/17 [place] [address] [facility] [address] [place] [phone] Rheumatology 03/14/18 Tenisha Miller MD [address] [place] [address] [address] [place] [address] Internal Medicine 03/14/18
--- OUTSIDE RECORDS SUMMARY | 2025-08-15 11:01 | XMS_ITS | Encounter Summary ---
Author Organization [facility] Address [address] [place] [address] Phone Care Team Providers Care Websphere Portal Developer Name Role Phone Sheree Yadav APRN, WEDDING DECORATOR Primary Care P rovider Jonny De Guzman MD Unavailable Sydnee Gamble APRN WEDDING DECORATOR Unavailable Reason for Visit * Reason Onset Date Comments Vaginal Discharge 08/15/2025 Encounter Details Date Type Department Care Team (Late st Contact Info) Description 08/15/2025 Nurse Triage [facility] [address] [place] [address] Sheree Yadav APRN, WEDDING DECORATOR [address] [place] [address] Vaginal Discharge Social History Tobacco Use Types Packs/Day Years Used Date Smoking Tobacco: Never Smokeless Tobacco: Never Alcohol Use Standard Drinks/Week Comments Yes 0 (1 standard drink = 0.6 oz pur e alcohol) occ [facility] Utilities Answer Date Recorded In the past [...] declined 01/31/2025 How often do you attend oriental orthodox or mormon serv ices? Patient declined 01/31/2025 Do you belong to any clubs o r organizations such as oriental orthodox groups, unions, fraternal or athletic groups, or [...] Total Score - Questions 1-9 0 01/08 [facility] - Occupational Stress [...] any time in the past 12 m [facility], were you homeless or living in a half-way (including now)? Patient declined 01/31/2025 Comments No Sex and Gender Information Value Date Recorded Sex Assigned at Not on file Legal Sex Female 3:25 PM HALAL BUTCHER Gender Identity Not on file Sexual Orientation Not on file documented as of this encounter Miscellaneous Notes * Telephone Encounter - Amalia De La Rosa RN - 08/15/2025 8:23 AM HALAL BUTCHER SITUATION: 35 y.o. with yeast build up, swelling and dryness BACKGROUND: Patient contacting PCP office. Patient states she is prone to getting yeast infections and does take probiotics. Patient does believe this is a yeast infection. Per chart review, patient last office visit 06/05/2025 ASSESSMENT: Discharge - cloudy white - thick and sticky No odor Between legs are dry and itching Swelling to inside the labia bilateral Onset - 08/14/2025 in the afternoon Does have some redness to the perineum and inside the bilateral labia Denies: Pain Fever Pain with urination RECOMMENDATION: Caller agreeable to highest disposition listed: See in Office or Video Visit Today. Care advice provided per triage guideline. Caller verbalized understanding. Due to office unavailability within disposition, advised for patient to be seen at prompt care or urgent care. Caller agreeable to prompt care/urgent care. - Reason for Disposition: Genital area looks infected (e.g., draining sore, spreading redness) Protocols Used: Vaginal [id number] See care advice and disposition for Guideline. First positive answer recorded, all responses to prior questions were negative. If symptoms increase, change or if new symptoms develop, call your health care provider or call back. Recommendations were based on caller information and is not a diagnosis. Verified and reviewed all triage information with caller. L BUTCHER L BUTCHER L BUTCHER * Telephone Encounter - Edyta Combs - 08/15/2025 8:21 AM CST Symptom: Vaginal Symptoms - Not Bleeding Outcome: Transfer to rn new graduate queue Reason: Vaginal swelling The caller accepted this outcome. Caller Denied: * Severe pelvic pain now L BUTCHER documented in this encounter Plan of Treatment Upcoming Encounters Date Type Department Care Team (Late st Contact Info) Description 10/16/2025 3:30 PM HALAL BUTCHER Office Visit [facility] - Primary Care - [place] [address] [place] [phone] Sheree Yadav APRN WEDDING DECORATOR [address] [place] [address] documented as of this encounter Visit Diagnoses Not on filedocumented in this encounter Additional Health Concerns Assessment Noted Time PHQ-9 Depression Total Score: 0 02/01/20 25 9:09 AM CDT documented as of this encounter Care Teams Websphere Portal Developer Relationship Specialty Start Date End Date Sheree Yadav APRN, WEDDING DECORATOR [address] [place] [address] PCP - General Advanced Practice Nurse 12/18/23 Jonny De Guzman MD [address] [place] [address] Consulting Physician Pulmonary Disease 01/03/24 Sydnee Gamble APRN, WEDDING DECORATOR [address] [address] Nurse Practitioner Advanced Practice Nurse 01/27/25 documented as of this encounter
--- NOTE | 2025-08-15 11:45 | ED_ITS ---
HPI - Female Genitourinary General Chief complaint: Urogenital-Female Stated complaint: Poss yeast infection Time Seen by Provider: 08/15/25 11:45 Source: patient, RN notes reviewed and old records reviewed Mode of arrival: ambulatory Limitations: no limitations History of Present Illness HPI Narrative: 35 year old female who presents to express care with complaints of white thick vaginal discharge without odor and irritation which started yesterday. Patient reports that she is prone to vaginal yeast infections and doesn't want any testing done or have any concern for STD's just wants treatment. Patient reports that she usually has to have vaginal and oral treatment to get rid of infection. Patient denies any history of diabetes denies any urinary symptoms and denies any known fever. MD elicited complaint: vaginal discharge Pertinent past history: other (vaginal yeast infections) Onset (ago): day(s) (since yesterday) Location of symptoms: vaginal Severity: mild Quality of pain: other (irritation) Vaginal discharge: white and other (thick without odor) Vaginal bleeding: none Relieving factors: other (has used hydrocortisone cream to outer vaginal area for irritation) Treatment prior to arrival: other (hydrocortisone cream to outer vaginal area) Patient : No Related Data Home Medications ?Medication ?Instructions ?Recorded ?Confirmed ?Last Taken ?Type Probiotic PO DAILY 05/14/25 Unknown H istory Allergies Allergy/AdvReac Type Severity Reaction Status Date / Time Penicillins Allergy Intermediate Hives Verified 08/15/25 10:21 Review of Systems Review of Systems: CONSTITUTIONAL: Denies fever, chills, or sweats. CARDIOVASCULAR: Denies chest pain, palpitations, or edema. RESPIRATORY: Denies cough or dyspnea. GASTROINTESTINAL: Denies abdominal pain, nausea, vomiting, or diarrhea. GENITOURINARY: Reports no dysuria, frequency, urgency. Denies flank pain or hematuria.Reports vaginal irritation and white thick discharge that does not have odor SKIN: Denies rash or itching. MUSCULOSKELETAL: Denies back pain or myalgia. Denies CVA tenderness NEUROLOGIC: Denies headache All systems reviewed & are unremarkable except as noted in HPI and below PMFSH Past Medical History Medical History (Updated 08/16/25 @ 11:58 by Nicole Clemens APRN) Acne Eczema Yeast infection involving the vagina and surrounding area Social History Social History (Updated 08/16/25 @ 11:59 by Nicole Clemens APRN) Alcohol intake: current Alcohol use details: social Substance use type: does not use Living arrangements: with family Gender identity (if verbalized by the patient): Female Comments At time of signature, agree with nursing past medical, surgical, social and family history. There is no relevant family history pertinent to the presenting complaint Exam Narrative: GENERAL: Well-appearing, well-nourished, and in no acute distress. HEAD: Normocephalic, atraumatic. NECK: Supple.no lymphadenopathy CHEST: Clear to auscultation. No respiratory distress.no cough or congestion noted SAO2 98% on room air HEART: Regular rate and rhythm. No murmur heard. Normal peripheral pulses. ABDOMEN: Soft, nontender, nondistended, normal active bowel sounds. No CVA tenderness reports no urinary symptoms, reports white thick vaginal discharge odorless with irritation. EXTREMITIES: Normal range of motion. No edema. SKIN: Warm, dry, no rash. NEURO: No focal deficits. Alert and oriented x3. Course Course Emergency Course: Patient is aware of diagnosis, understands and agrees to treatment plan.? Anticipatory guidance given.? Patient agrees to follow-up as directed and is aware of reasons to seek care at the emergency department. Portions of this record may have been created with voice recognition software Level of Care: Express Care Visit Vital Signs Vital signs: Vital Signs Temperature 36.4 C 08/15/25 10:23 Pulse Rate 80 08/15/25 10:23 Respiratory Rate 22 H 08/15/25 10:23 Blood Pressure 126/76 08/15/25 10:23 Pulse Oximetry 98 08/15/25 10:23 Oxygen Delivery Room Air 08/15/25 10:23 Temperature 36.4 C 08/15/25 10:23 Pulse Rate 80 08/15/25 10:23 Respiratory Rate 22 H 08/15/25 10:23 Blood Pressure 126/76 08/15/25 10:23 Pulse Oximetry 98 08/15/25 10:23 Oxygen Delivery Room Air 08/15/25 10:23 reviewed MDM - Female Genitourinary MDM Narrative Medical decision making narrative: Exam findings and UA show no acute concerns or changes; patient is non-toxic appearing and is in no distress.? Patient is appropriate for outpatient jason atment and follow-up. Differential Diagnosis Differential diagnosis: Likely bacterial vaginosis, vaginitis, cystitis and other (vaginal yeast infection, white thick vaginal discharge that is odorless) Medical Records Attestation: I reviewed the patient's medical records. Lab Data Attestation: I reviewed the patient's lab results. Critical Care Time Critical Care Time Critical Care Time: No Discharge Plan Discharge Clinical Impression: Vaginal yeast infection Patient Disposition: Home Condition: Stable Instructions: Antibiotic Form, Yeast Infection (ED) Additional Instructions: Increase fluids especially cranberry juice and water Avoid caffeine and carbonated beverages Antifungal vaginal suppositories as ordered Diflucan as prescribed Tylenol/ibuprofen for pain or fever Follow-up with her primary care provider if further problems or concerns Recheck if you have fever over 101, nausea and vomiting. If your symptoms persist, change or worsen significantly before you can contact your personal physician then please, without delay, go to the emergency department for further evaluation. Follow-up with PCP in 7-10 days or sooner if needed Avoid any scented vaginal products. Patient Language: Croatian Prescriptions: New miconazole nitrate 200 mg suppository 200 mg vaginal HS 3 Days Qty: 3 0RF fluconazole 150 mg tablet 150 mg PO DAILY Qty: 2 0RF Rx Instructions: take one today and repeat in 72 hours as needed No Action Probiotic PO DAILY Follow-up/Referrals: PHYSICIAN NOT ON STAFF,NONSTAFF [Primary Care Provider] Time of Disposition: 12:02 Quality [place] Coma Scale Eyes: Open Verbal: Oriented and Alert Motor: Follows Commands [place] Coma Total Score: 15
== END 2025-08-15 12:07 | disposition home or self-care (01) ==
PROVIDERS: Emergency Provider Registered Nurse
DX: B37.31 Acute candidiasis of vulva and vagina (principal)
CPT/HCPCS: 99213; G0463